=== PATIENT | male | born 1985 | race Caucasian/White ===

== ENCOUNTER 2023-01-11 23:11 | Emergency (ER) | payer OTHER, SELFPAY ==
[2023-01-11 23:53] VITALS: BP 144/94; PULSE 89; RESP 16; TEMP 36.7; O2SAT 97
--- NOTE | 2023-01-11 23:53 | CRLHL7_ITS ---
For Patients: As a result of the Century Cures Act, medical imaging exams and procedure reports are released immediately into your electronic medical record. You may view this report before your referring provider. If you have questions, please contact your health care provider. INDICATION: Neck injury, hanging TECHNIQUE: CT Neck without i.v. contrast. Coronal and sagittal reformats were obtained. COMPARISON: None FINDINGS: Skull base: Unremarkable. Portions of the oral cavity and mandible are obscured by streak artifacts from the patient`s dental amalgams. Pharynx: No retropharyngeal fluid collections are identified. Larynx and airway: Unremarkable. Salivary: Unremarkable. Thyroid: Unremarkable. Vascular: Unremarkable but vascular injuries cannot be assessed without intravenous contrast. Lymph: Unremarkable. Bone: No acute fractures or aggressive bone lesions are identified. Disc: The disc spaces are unremarkable in appearance. The facet joints are unremarkable. Soft tissue: The prevertebral soft tissues are unremarkable in appearance. Lung: The visualized lung apices and mediastinum are unremarkable. IMPRESSION: 1. The neck is unremarkable in appearance. Please note that all CT scans at this facility use dose modulation, iterative reconstruction, and/or weight-based dosing when appropriate to reduce radiation dose to as low as reasonably achievable. Dictated by: Olman Villar MD @ 01/12/2023 00:28:56 (Electronically Signed)
--- NOTE | 2023-01-11 23:53 | PC.NURSE ---
patient changed into paper scrubs, room 1 made safe room, video monitor
[2023-01-12 00:23] LABS: Basophils Absolute Auto 0.04 K/uL (0.00-0.30); Basophils Percent Auto 0.5 % (0.0-3.0); Eosinophils Absolute Auto 0.05 K/uL (0.00-0.50); Eosinophils Percent Auto 0.6 % (0.0-7.0); Hematocrit 47.4 % (37.0-53.0); Hemoglobin* 16.3 gm/dL (13.5-17.5); Immature Granulocytes Abs Auto 0.07 K/uL (0.00-0.30); Immature Granulocytes Pct Auto 0.9 %; Lymphocytes Absolute Auto 1.65 K/uL (0.90-2.90); Mean Corpuscular HGB Conc 34 gm/dL (32-36); Mean Corpuscular Hemoglobin 30 pg (26-34); Mean Corpuscular Volume 86 fL (80-100); Monocytes Percent Auto 6.5 % (0.0-11.0); Neutrophils Absolute Auto 5.53 K/uL (1.7-7.0); Neutrophils Percent Auto 70.5 % (42.0-72.0); Platelet Count* 261 K/uL (140-440); RDW Coefficient of Variation % 13.1 % (11.5-15.5); Red Blood Count 5.51 m/uL (4.30-5.90); White Blood Count* 7.85 K/uL (4.50-11.00)
[2023-01-12 00:24] LABS: Slide Review Reflex No
[2023-01-12 00:32] LABS: Amphetamine Screen Urine Negative (Negative); Barbiturate Screen Urine Negative (Negative); Benzodiazepines Screen Urine Negative (Negative); Cannabinoid Screen Urine Negative (Negative); Cocaine Screen Urine Negative (Negative); Methadone Screen Urine Negative (Negative); Methamphetamines Screen Urine Negative (Negative); Opiate Screen Urine Negative (Negative); Oxycodone Screen Urine Negative (Negative); Phencyclidine Screen Urine Negative (Negative); Tricyclic Antidepressant Urine Negative (Negative)
--- NOTE | 2023-01-12 00:42 | ED_ITS ---
HPI - General Adult General Chief complaint: Psychiatric Problem/Disorder <Beverley Ragsdale MD - Last Filed: 01/13/23 23:56> Stated complaint: Suicide Attempt <Beverley Ragsdale MD - Last Filed: 01/13/23 23:56> Time Seen by Provider: 01/11/23 23:53 <Beverley Ragsdale MD - Last Filed: 01/13/23 23:56> Source: patient <Beverley Ragsdale MD - Last Filed: 01/13/23 23:56> Limitations: no limitations <Beverley Ragsdale MD - Last Filed: 01/13/23 23:56> History of Present Illness HPI narrative: 37-year-old male presents after suicide attempt. He is very forthcoming with details and is remorseful. Patient reports that he has been going through a divorce for the past 5 months. He has been struggling with increased thoughts of depression and suicide for 2 weeks. He did speak with his primary care provider was started on an antidepressant, 10 mg once daily through [facility]. I do not have access to those records. He says that he started the medication 6 days ago and has been referred to a counselor and has an upcoming is a do my appointment in a week. He has been to his estranged for 10 years. They have 3 children together. He reports that he has recently found out that she has began dating again. He had a couple of drinks and went over to her home to talk to her. He admitted that they argued but there was no physical altercation. He says that he was caught off guard when he found a used condom in the garbage. She admitted that she is in a new relationship, he stated that he did not expect her to move on so quickly. They argued briefly and then she left her home to take 1 of their children to lacrosse practice. After her return, he left her house and went to the bar for a few more drinks. He then came back to his mother's house where he is currently staying. He reports that he was feeling depressed, overwhelmed. He had been contemplating suicide for a couple of weeks. He has no history of prior suicide attempts, mental health hospitalization or drug use. He had contemplated driving his car off the road but instead went home and fashioned a noose out of his bed sheet. He hung this from the exposed ceiling [place] in the basement where he is staying and hung himself. He says that he lost consciousness but then awoke and. He was hanging at the time. He was able to free himself and laid down on the bed where he called his ex-. She then called patient's brother and mother for assistance and he was brought here. He says that he does not typically drink during the week just socially on the weekends. Drinking tonight was very out of character for him. He admits to difficulty coping the past few weeks. No other drug use. When I ask about his motivation to continue living, he admits that he has a reliable job, supportive family. He loves his children do yearly and wants them to have a good life. He knows that suicide would impact them negatively. He just ?feels like he has been replaced?. No hallucinations, no psychosis. No history of severe head trauma or injury. Denies any toxic ingestion besides alcohol tonight. Past medical history he states is benign, no major long-term health problems. His only medication is a new antidepressant, no prior use of these. Social alcohol but no regular drug use. He states that his family history is negative for mental health issues. ROS is notable for the mental health issues only as above, otherwise benign times 12 systems, states that he is typically in very good health. <Beverley Ragsdale MD - Last Filed: 01/13/23 23:56> Related Data Allergies/adverse reactions: Allergies Allergy/AdvReac Type Severity Reaction Status Date / Time No Known Drug Allergies Allergy Verified 01/11/23 23:58 <Beverley Ragsdale MD - Last Filed: 01/13/23 23:56> [facility] Social History: Social History Smoking Status: Current every day smoker Do you use any of these nicotine containing products: None Second hand tobacco smoke exposure: No How often do you have a drink containing alcohol: 2-4 times a month How often do you have six or more drinks on one occasion: Less than monthly AUDIT-C Alcohol total score: 3 Non-prescribed substance use: denies use <Beverley Ragsdale MD - Last Filed: 01/13/23 23:56> Exam Const: Vital Signs, click to edit/add: Vital Signs - 24 hr 01/11/23 23:53 01/12/23 10:11 Temperature 98.0 F 97.9 F Pulse Rate [Right Pulse Oximeter] 89 76 Respiratory Rate 16 16 Blood Pressure [Ri ght Upper Arm] 144/94 H 134/76 Pulse Oximetry 97 96 Oxygen Delivery Me thod Room Air Room Air <Beverley Ragsdale MD - Last Filed: 01/13/23 23:56> Vital Signs, click to edit/add: Vital Signs - 24 hr 01/11/23 23:53 01/12/23 10:11 Temperature 98.0 F 97.9 F Pulse Rate [Right Pulse Oximeter] 89 76 Respiratory Rate 16 16 Blood Pressure [Ri ght Upper Arm] 144/94 H 134/76 Pulse Oximetry 97 96 Oxygen Delivery Me thod Room Air Room Air <Wm Robles MD - Last Filed: 01/12/23 23:20> Documenting provider has reviewed patient's vital signs: yes <Beverley Ragsdale MD - Last Filed: 01/13/23 23:56> General appearance: cooperative, comfortable and well kempt <Beverley Ragsdale MD - Last Filed: 01/13/23 23:56> HENMT: Common normals: normocephalic and head/scalp atraumatic <Beverley Ragsdale MD - Last Filed: 01/13/23 23:56> Head and scalp: normocephalic and atraumatic <Beverley Ragsdale MD - Last Filed: 01/13/23 23:56> Face and sinus: normal facial exam <Beverley Ragsdale MD - Last Filed: 01/13/23 23:56> Mouth: oral and palatal mucosa normal <Beverley Ragsdale MD - Last Filed: 01/13/23 23:56> Throat: posterior oropharynx normal <Beverley Ragsdale MD - Last Filed: 01/13/23 23:56> Other: No signs of tongue biting or seizure activity, no dental injury. <MD Jose Nj Last Filed: 01/13/23 23:56> Eye: Common normals: PERRL, EOMs intact bilaterally and conjunctivae normal <MD Jose Nj Last Filed: 01/13/23 23:56> Conjunctiva: conjunctiva(e) normal <MD Jose Nj Last Filed: 01/13/23 23:56> Pupil: PERRL <MD Jose Nj Last Filed: 01/13/23 23:56> Neck & C-Spine: Common normals: full ROM <MD Jose Nj Last Filed: 01/13/23 23:56> Cervical spine: cervical ROM normal; no cervical spine tenderness <MD Jose Nj Last Filed: 01/13/23 23:56> Other: Mild bruising to lateral left neck, no severe swelling. No tenderness to hyoid bone, no crepitus. No point bony tenderness to cervical spine <MD Jose Nj Last Filed: 01/13/23 23:56> Chest: Common normals: inspection of chest normal <MD Jose Nj Last Filed: 01/13/23 23:56> Resp: Common normals: normal respiratory effort, no use of accessory muscles and clear to auscultation bilaterally <MD Jose Nj Last Filed: 01/13/23 23:56> Effort & inspection: able to speak in complete sentences <MD Jose Nj Last Filed: 01/13/23 23:56> Auscultation: clear to auscultation bilaterally <MD Jose Nj Last Filed: 01/13/23 23:56> Cardio: Common normals: regular rate, regular rhythm, S1 normal heart sound, S2 normal heart sound, no murmurs and peripheral pulses 2+ throughout <MD Jose Nj Last Filed: 01/13/23 23:56> Rate: regular rate <MD Jose Nj Last Filed: 01/13/23 23:56> Rhythm: regular rhythm <MD Jose Nj Last Filed: 01/13/23 23:56> Heart sounds: S1 normal and S2 normal <MD Jose Nj Last Filed: 01/13/23 23:56> Peripheral pulses: pulses 2+ throughout <MD Jose Nj Last Filed: 01/13/23 23:56> GI: Common normals: Normal to inspection, nondistended, normoactive bowel sounds present, soft to palpation, non-tender, no hepatosplenomegaly and no masses <MD Jose Nj Last Filed: 01/13/23 23:56> Palpation: soft and no hepatosplenomegaly <MD Jose Nj Last Filed: 01/13/23 23:56> Extremity: Common normals: normal to inspection, full ROM and normal capillary refill <MD Jose Nj Last Filed: 01/13/23 23:56> Neuro: Speech: speech normal <MD Jose Nj Last Filed: 01/13/23 23:56> Gait (neuro): normal gait <MD Jose Nj Last Filed: 01/13/23 23:56> Motor exam: strength 5/5 throughout, no tremor noted and no movement abnormalities noted <MD Jose Nj Last Filed: 01/13/23 23:56> Psych: Appearance: well kempt <MD Jose Nj Last Filed: 01/13/23 23:56> Attitude: engaged <MD Jose Nj Last Filed: 01/13/23 23:56> Activity/motor behavior: appropriate eye contact <MD Jose Nj Last Filed: 01/13/23 23:56> Mood and affect: depressed mood <MD Jose Nj Last Filed: 01/13/23 23:56> Thought content: normal thought content and suicidality <MD Jose Nj Last Filed: 01/13/23 23:56> Memory/cognition: memory grossly intact <MD Jose Nj Last Filed: 01/13/23 23:56> Insight: insight good <Beverley Ragsdale MD - Last Filed: 01/13/23 23:56> Judgement: judgment good <Beverley Ragsdale MD - Last Filed: 01/13/23 23:56> Skin: Narrative: Mild bruising on neck, no other signs of self-injury. <Beverley Ragsdale MD - Last Filed: 01/13/23 23:56> Course Course Hospital Course: [facility] - Received Mr. Salazar at change of shift. My understanding is that attempted suicide in extremely stressful circumstances which will be ongoing. Placed on a hold and anticipating placement. <Bevreley Ragsdale MD - Last Filed: 01/13/23 23:56> Reevaluation(s) Reevaluation #1: [facility] -- received Mr. Salazar in handoff at change of shift this morning. I did review records. Is pending psychiatric placement for suicide attempt in the setting of significant social stressors. No further interventions were required. Placement found [facility]. Ambulance transport. <Wm Robles MD - Last Filed: 01/12/23 23:20> Vital Signs Vital signs: Initial Vital Signs Temperature 98.0 F 01/11/23 23:53 Temperature Source Temporal Artery Scan 01/11/23 23:53 Pulse Rate 89 01/11/23 23:53 Pulse Rhythm Regular 01/11/23 23:53 Respiratory Rate 16 01/11/23 23:53 Blood Pressure 144/94 H 01/11/23 23:53 Blood Pressure Mean 110 H 01/11/23 23:53 Blood Pressure Position Sitting 01/11/23 23:53 Pulse Oximetry 97 01/11/23 23:53 Oxygen Delivery Method Room Air 01/11/23 23:53 Vital Signs Temperature 98.0 F 01/11/23 23:53 Pulse Rate 89 01/11/23 23:53 Respiratory Rate 16 01/11/23 23:53 Blood Pressure 144/94 H 01/11/23 23:53 Pulse Oximetry 97 01/11/23 23:53 Oxygen Delivery Method Room Air 01/11/23 23:53 Temperature 97.9 F 01/12/23 10:11 Pulse Rate 76 01/12/23 10:11 Respiratory Rate 16 01/12/23 10:11 Blood Pressure 134/76 01/12/23 10:11 Pulse Oximetry 96 01/12/23 10:11 Oxygen Delivery Method Room Air 01/12/23 10:11 <Beverley Ragsdale MD - Last Filed: 01/13/23 23:56> Initial Vital Signs Temperature 98.0 F 01/11/23 23:53 Temperature Source Temporal Artery Scan 01/11/23 23:53 Pulse Rate 89 01/11/23 23:53 Pulse Rhythm Regular 01/11/23 23:53 Respiratory Rate 16 01/11/23 23:53 Blood Pressure 144/94 H 01/11/23 23:53 Blood Pressure Mean 110 H 01/11/23 23:53 Blood Pressure Position Sitting 01/11/23 23:53 Pulse Oximetry 97 01/11/23 23:53 Oxygen Delivery Method Room Air 01/11/23 23:53 Vital Signs Temperature 98.0 F 01/11/23 23:53 Pulse Rate 89 01/11/23 23:53 Respiratory Rate 16 01/11/23 23:53 Blood Pressure 144/94 H 01/11/23 23:53 Pulse Oximetry 97 01/11/23 23:53 Oxygen Delivery Method Room Air 01/11/23 23:53 Temperature 97.9 F 01/12/23 10:11 Pulse Rate 76 01/12/23 10:11 Respiratory Rate 16 01/12/23 10:11 Blood Pressure 134/76 01/12/23 10:11 Pulse Oximetry 96 01/12/23 10:11 Oxygen Delivery Method Room Air 01/12/23 10:11 <Wm Robles MD - Last Filed: 01/12/23 23:20> Medical Decision Making MDM Narrative Medical decision making narrative: Suicide attempt. Concern for potential cervical spine or airway injury. CT scan of the neck is urgently performed and thankfully this is normal. Basic blood work recommended. Will be placed on a 72 hour hold. Would benefit most likely from inpatient depression treatment. He does have access to fire arms. He seems appropriately remorseful, I do think that alcohol was a factor in his impulsive suicide attempt tonight but he has been contemplation all for a few weeks. Tele health mental health assessment ordered. Will place on 72 hour hold. At this point, he states that he would voluntarily consider mental health treatment but would like to know the terms. We have been notified that it will be an 8 hour wait for assessment. 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 They will begin the process of seeking placement. <Beverley Ragsdale MD - Last Filed: 01/13/23 23:56> Lab Data Lab results reviewed: Yes I reviewed the patient's lab results <Beverley Ragsdale MD - Last Filed: 01/13/23 23:56> Lab results narrative: Mild intoxication, otherwise unremarkable. <Beverley Ragsdale MD - Last Filed: 01/13/23 23:56> Labs: Lab Results 01/12/23 01/12/23 Range/Units 00:07 09:11 WBC 7.85 (4.50-11.00) K/uL RBC 5.51 (4.30-5.90) m/uL Hgb 16.3 (13.5-17.5) gm/dL Hct 47.4 (37.0-53.0) % MCV 86 (80-100) fL MCH 30 (26-34) pg MCHC 34 (32-36) gm/dL RDW Coeff of Clare 13.1 (11.5-15.5) % Plt Count 261 (140-440) K/uL Neut % (Auto) 70.5 (42.0-72.0) % Lymph % (Auto) 21.0 (20-44) % [place] % (Auto) 6.5 (0.0-11.0) % Eos % (Auto) 0.6 (0.0-7.0) % Baso % (Auto) 0.5 (0.0-3.0) % Neut # (Auto) 5.53 (1.7-7.0) K/uL Lymph # (Auto) 1.65 (0.90-2.90) K/uL [place] # (Auto) 0.50 (0.00-0.90) K/UL Eos # (Auto) 0.05 (0.00-0.50) K/uL Baso # (Auto) 0.04 (0.00-0.30) K/uL Sodium 139 (135-149) mmol/L Potassium 3.4 L (3.6-5.1) mmol/L Chloride 103 (96-114) mmol/L Carbon Dioxide 24 (20-32) mmol/L BUN 12 (5-24) mg/dL Creatinine 1.0 (0.5-1.5) mg/dL Estimated GFR 100 ml/min Glucose 109 (60-115) mg/dL Calcium 9.3 (8.4-10.6) mg/dL Total Bilirubin 0.5 (0.1-1.5) mg/dL AST 27 (12-35) U/L ALT 35 (4-50) U/L Alkaline Phosphatase 82 (40-150) U/L Total Protein 7.4 (6.0-8.3) g/dL Albumin 4.8 (3.3-5.0) g/dL Salicylates < 1.0 L (1.0-10) mg/dL Urine Opiates Screen Negative (Negative) Ur Oxycodone Screen Negative (Negative) Urine Methadone Screen Negative (Negative) Ur Propoxyphene Screen Negative (Negative) Acetaminophen < 10.0 L (10.0-30.0) ug/mL Ur Barbiturates Screen Negative (Negative) U Tricyclic Antidepress Negative (Negative) Ur Phencyclidine Scrn Negative (Negative) Ur Amphetamines Screen Negative (Negative) U Methamphetamines Scrn Negative (Negative) U Benzodiazepines Scrn Negative (Negative) Urine Cocaine Screen Negative (Negative) U Marijuana (THC) Screen Negative (Negative) Ur Drug Screen Comment See Note Ethyl Alcohol 0.11 H (0.01-0.03) % SARS-CoV-2 (PCR) Negative SARS-CoV-2 (Negative) <Beverley Ragsdale MD - Last Filed: 01/13/23 23:56> Lab Results 01/12/23 01/12/23 Range/Units 00:07 09:11 WBC 7.85 (4.50-11.00) K/uL RBC 5.51 (4.30-5.90) m/uL Hgb 16.3 (13.5-17.5) gm/dL Hct 47.4 (37.0-53.0) % MCV 86 (80-100) fL MCH 30 (26-34) pg MCHC 34 (32-36) gm/dL RDW Coeff of Clare 13.1 (11.5-15.5) % Plt Count 261 (140-440) K/uL Neut % (Auto) 70.5 (42.0-72.0) % Lymph % (Auto) 21.0 (20-44) % [place] % (Auto) 6.5 (0.0-11.0) % Eos % (Auto) 0.6 (0.0-7.0) % Baso % (Auto) 0.5 (0.0-3.0) % Neut # (Auto) 5.53 (1.7-7.0) K/uL Lymph # (Auto) 1.65 (0.90-2.90) K/uL [place] # (Auto) 0.50 (0.00-0.90) K/UL Eos # (Auto) 0.05 (0.00-0.50) K/uL Baso # (Auto) 0.04 (0.00-0.30) K/uL Sodium 139 (135-149) mmol/L Potassium 3.4 L (3.6-5.1) mmol/L Chloride 103 (96-114) mmol/L Carbon Dioxide 24 (20-32) mmol/L BUN 12 (5-24) mg/dL Creatinine 1.0 (0.5-1.5) mg/dL Estimated GFR 100 ml/min Glucose 109 (60-115) mg/dL Calcium 9.3 (8.4-10.6) mg/dL Total Bilirubin 0.5 (0.1-1.5) mg/dL AST 27 (12-35) U/L ALT 35 (4-50) U/L Alkaline Phosphatase 82 (40-150) U/L Total Protein 7.4 (6.0-8.3) g/dL Albumin 4.8 (3.3-5.0) g/dL Salicylates < 1.0 L (1.0-10) mg/dL Urine Opiates Screen Negative (Negative) Ur Oxycodone Screen Negative (Negative) Urine Methadone Screen Negative (Negative) Ur Propoxyphene Screen Negative (Negative) Acetaminophen < 10.0 L (10.0-30.0) ug/mL Ur Barbiturates Screen Negative (Negative) U Tricyclic Antidepress Negative (Negative) Ur Phencyclidine Scrn Negative (Negative) Ur Amphetamines Screen Negative (Negative) U Methamphetamines Scrn Negative (Negative) U Benzodiazepines Scrn Negative (Negative) Urine Cocaine Screen Negative (Negative) U Marijuana (THC) Screen Negative (Negative) Ur Drug Screen Comment See Note Ethyl Alcohol 0.11 H (0.01-0.03) % SARS-CoV-2 (PCR) Negative SARS-CoV-2 (Negative) <Wm Robles MD - Last Filed: 01/12/23 23:20> Imaging Data CT scan neck: Attestation: I have reviewed the pertinent imaging results. <Beverley Ragsdale MD - Last Filed: 01/13/23 23:56> My impression: Normal <Beverley Ragsdale MD - Last Filed: 01/13/23 23:56> Radiologist's impression: IMPRESSION: 1. The neck is unremarkable in appearance. <Beverley Ragsdale MD - Last Filed: 01/13/23 23:56> Discharge Plan Discharge Clinical Impression: Suicide attempt by hanging <Beverley Ragsdale MD - Last Filed: 01/13/23 23:56> Patient Disposition: Xfer Psychiatric Hosp <Beverley Ragsdale MD - Last Filed: 01/13/23 23:56> Discharge Location: [facility] <Beverley Ragsdale MD - Last Filed: 01/13/23 23:56> Condition: Stable <Beverley Ragsdale MD - Last Filed: 01/13/23 23:56> Stand Alone Forms: [facility] Info Instructions <Beverley Ragsdale MD - Last Filed: 01/13/23 23:56>
[2023-01-12 00:44] LABS: Albumin* 4.8 g/dL (3.3-5.0); Chloride* 103 mmol/L (96-114)
[2023-01-12 00:45] LABS: Potassium* 3.4 mmol/L (3.6-5.1); Sodium* 139 mmol/L (135-149)
[2023-01-12 00:47] LABS: Aspartate Amino Transferase* 27 U/L (12-35); Bilirubin Total* 0.5 mg/dL (0.1-1.5); Carbon Dioxide* 24 mmol/L (20-32); Estimated Glomerular Filt Rate 100 ml/min
[2023-01-12 00:48] LABS: Alanine Aminotransferase* 35 U/L (4-50); Alkaline Phosphatase* 82 U/L (40-150); Blood Urea Nitrogen* 12 mg/dL (5-24); Calcium* 9.3 mg/dL (8.4-10.6); Ethanol* 0.11 % (0.01-0.03); Glucose* 109 mg/dL (60-115); Total Protein* 7.4 g/dL (6.0-8.3)
[2023-01-12 00:49] LABS: Acetaminophen* < 10.0 ug/mL (10.0-30.0); Salicylate* < 1.0 mg/dL (1.0-10)
--- NOTE | 2023-01-12 03:20 | ED.NURSE ---
pt ambulated to restroom. no complaints or concerns.
[2023-01-12] MEDS: IBUPROFEN 600 MG TABLET PO (06:42)
[2023-01-12] MEDS: ESCITALOPRAM 10 MG TABLET PO (09:06)
--- NOTE | 2023-01-12 09:27 | ED.NURSE ---
Pt given breakfast tray. Aware of hold status and agreeable w/ plan for admission. Denies pain or discomfort.
[2023-01-12 09:51] LABS: SARS PCR* Negative SARS-CoV-2 (Negative)
[2023-01-12 10:11] VITALS: BP 134/76; PULSE 76; RESP 16; TEMP 36.6; O2SAT 96
--- NOTE | 2023-01-12 10:44 | ED.NURSE ---
[facility]S here for pt transport. All belongings accounted for. Pt's phone remains w/ him. IV removed, catheter intact. Pt ambulatory to cot. En route to [facility]. Pt aware of final dispo and in agreement w/ plan.
== END 2023-01-12 10:48 ==
PROVIDERS: Emergency Provider Family Medicine
DX: T14.91XA Suicide attempt, initial encounter (principal); X83.8XXA Intentional self-harm by other specified means, initial encounter
CPT/HCPCS: 36415; 70490; 80053; 80143; 80179; 80306; 82077; 85025; 87635; 99283; 99285; A9270

== ENCOUNTER 2023-01-12 10:37 | Outpatient (CLI) | payer OTHER, SELFPAY | END 2023-01-12 10:38 | disposition home or self-care (01) | LOC: AMB 01-16 10:17 | PROVIDERS: Visit Provider Family Medicine | DX: R45.851 Suicidal ideations (principal) | CPT/HCPCS: A0425; A0428 ==